=== PATIENT | female | born 1985 | race Caucasian/White ===

== ENCOUNTER 2017-01-30 12:22 | Emergency (ER) | payer OTHER ==
[~2017-01-30] VITALS: Ht 162.6 cm; Wt 100.2 kg
[~2017-01-30 12:22] MED LIST: LOVENOX40 MG SUB-Q
[2017-01-30] MEDS ORDERED: MECLIZINE HCL25 MG PO (14:38)
== END 2017-01-30 14:53 | disposition home or self-care (01) ==
LOC: ED 12:22
DX: H93.12 Tinnitus, left ear (principal); R11.10 Vomiting, unspecified; Z87.891 Personal history of nicotine dependence; Z88.0 Allergy status to penicillin; Z88.1 Allergy status to other antibiotic agents; Z90.49 Acquired absence of other specified parts of digestive tract
CPT/HCPCS: 81001; 84703; 99283

== ENCOUNTER 2020-04-22 07:55 | Day surgery (SDC) | payer OTHER ==
[~2020-04-22 07:55] MED LIST changes: +MECLIZINE HCL25 MG PO; +WELLBUTRIN SR150 MG PO
[2020-04-22] MEDS ORDERED: MULTI VITAMIN1 EACH PO (08:07)
--- NOTE | 2020-04-22 12:41 | NUR ---
04/22/20 1241 Braldey,Crystal 1211 PT ARRIVED TO PACU AWAKE AND TALKING TO RN, PT REPORTS PAIN 6/10 IN FOOT, PSYCHIATRY TEACHER TALKING TO PT ABOUT BLOCK. VSS.
--- NOTE | 2020-04-24 12:24 | PATH ---
[facility] [address] [place], [place] [address] Signed SPECIMEN(S): A LEFT FOOT SPECIMEN SOURCE: A. LEFT FOOT CLINICAL HISTORY: Soft tissue mass, left foot. Excision of cyst/ganglion of left foot. FINAL PATHOLOGIC DIAGNOSIS: Soft tissue mass, left foot, excision: - Ganglion cyst. NAL:cml:C2NR MICROSCOPIC EXAMINATION: Histologic sections of all submitted blocks are examined by light microscopy. These findings, together with the gross examination, support the pathologic diagnosis. GROSS DESCRIPTION: The specimen, labeled "JH," and designated on the requisition "soft tissue mass, left foot," is received in formalin and consists of a portion of pink-abraham to yellow-abraham soft tissue (2.8 x 2.5 x 1.4 cm). The specimen is serially sectioned to reveal a cystic structure (1.9 x 1.5 x 0.3 cm) containing a clear viscous fluid. The remaining cut surface shows yellow-abraham soft tissue. Steep Tender sections are submitted in cassette (A1). AC (under the direct supervision of a pathologist) The Gross Description was prepared using a voice recognition system. The report was reviewed for accuracy; however, sound-alike word errors, addition and/or deletions may occur. If there is any question about this report, please contact Client Services. PERFORMING LABORATORY: The technical component was performed by [facility], [address] [place] [id number] (Pipe Liner: Radha Cao MD; CLIA# [id number]).Professional interpretation was performed by [facility], [address] [address] (CLIA# [id number]). Diagnostician: Lissett Worley MD Pathologist PATIENT NAME: MORGAN LOPEZ PATHOLOGY DATE OF : 87 REPORT #: [id number] PHYSICIAN: TAMANNA PATHOLOGY PCP: GOL DURBIN PA-C REPORT IS CONFIDENTIAL AND NOT TO BE RELEASED WITHOUT AUTHORIZATION [address] [address] Signed Electronically Signed 04/24/2020 Copies: ~ PATIENT NAME: MORGAN LOPEZ PATHOLOGY DATE OF : 87 REPORT #: [id number] PHYSICIAN: TAMANNA PATHOLOGY PCP: GLO DURBIN PA-C REPORT IS CONFIDENTIAL AND NOT TO BE RELEASED WITHOUT AUTHORIZATION
--- NOTE | 2020-04-24 16:44 | OR ---
[facility] [address] [place], [place] [address] Signed DATE OF OPERATION: 04/22/2020 SURGEON: Jordan Hartmann DPM PREOPERATIVE DIAGNOSIS: Soft tissue mass or ganglion cyst, left foot. POSTOPERATIVE DIAGNOSIS: Soft tissue mass or ganglion cyst, left foot. PRINTER SLOTTER OPERATOR SURGEON: Jed Jaramillo DPM. ANESTHESIA: IV general with local block left foot. INCLUSION SPECIALIST: Maynor Estrella. SPECIMEN TO PATHOLOGY: Soft tissue mass from left foot. PROCEDURE: Excision of soft tissue mass, left foot. DESCRIPTION OF PROCEDURE: The patient was brought to the operating room and placed on the table in the supine position. Anesthesia Department administered IV sedation, after which a local block was given to the left foot using a total of 10 mL 1:1 mixture 0.5% ropivacaine plain and 2% lidocaine plain. The left leg and foot were then prepped and draped in the usual sterile manner and an Esmarch was used for hemostasis. Attention was initially directed to the lateral left foot where a linear longitudinal incision was made at the junction of dorsal and plantar skin centered over the 5th metatarsal base area. The soft tissue lesion was plantar left 5th metatarsal base and the incision was placed at this location to avoid a plantar incision. The incision was initially full-thickness through the dermis and a 4-5 cm in length, deepened through subcutaneous tissue using careful dissection and cautery as necessary for hemostasis. Once the dissection was through the level of subcutaneous tissue the lesion became evident within the wound site and at that point, dissection was used to progress around Electronically Signed By: JORDAN HARTMNAN DPM 04/24/20 1644 PATIENT NAME: MORGAN LOPEZ OPERATIVE REPORT DATE OF : 87 REPORT #: [id number] PHYSICIAN: JORDAN HARTMANN DPM PCP: GLO DURBIN PA-C REPORT IS CONFIDENTIAL AND NOT TO BE RELEASED WITHOUT AUTHORIZATION [facility] [address] [place], [place] [address] Signed the lesion on all sides dorsal and plantar, proximal and distal. The lesion had areas that appeared to be vascular as well as areas that appeared to be fluid-filled and a portion of this appeared to have nerve tissue. Therefore, the appearance is mixed and type of lesion is uncertain. The lesion total size was approximately 1.5 x 2.5 x 2.5 cm. Once the lesion was completely freed from the surrounding soft tissues this was sent for pathology and the remaining soft tissues examined for any remaining abnormal tissue and none was found. The surgical site was then irrigated with copious amounts of normal saline, then deep soft tissues closed using 4-0 Vicryl and skin closed using 4-0 nylon. Dressings then applied consisting of Adaptic, Betadine-soaked gauze, dry gauze, Flexicon, and Coban for compression. Prior to placement of the dressings, a postoperative injection was given using 8 mL of 9:1 mixture 0.5% ropivacaine plain and dexamethasone phosphate 4 mg/mL. INTRAOPERATIVE COMPLICATIONS: None. ESTIMATED BLOOD LOSS: Less than 5 mL. The patient tolerated the procedure and the anesthesia well and left the operating room with vital signs stable and vascular status intact to the left foot as evidenced by hyperemia with removal of the Esmarch. SELMA Paige/JOSEL /[id number] Copies: ~ Electronically Signed By: JORDAN HARTMANN DPM 04/24/20 1644 PATIENT NAME: MORGAN LOPEZ OPERATIVE REPORT DATE OF : 87 REPORT #: [id number] PHYSICIAN: JORDAN HARTMANN DPM PCP: GLO DURBIN PA-C REPORT IS CONFIDENTIAL AND NOT TO BE RELEASED WITHOUT AUTHORIZATION
== END 2020-04-22 13:11 | disposition home or self-care (01) ==
LOC: DS 07:55 → OPS 07:55 → DS 08:45 → OPS 08:45
PROVIDERS: ATTEND Podiatrist Foot Surgery
PROC: 0LBW0ZZ Excision of Left Foot Tendon, Open Approach (ICD-10-PCS; principal; 2020-04-22 08:45)
DX: M67.472 Ganglion, left ankle and foot (principal); Z88.0 Allergy status to penicillin
CPT/HCPCS: 01480; 64445; 76942; J1100; J1644; J2001; J2405; J2704; J2795; J3010; J7121

== ENCOUNTER 2024-07-03 08:28 | Emergency (ER) | payer OTHER ==
[~2024-07-03] VITALS: Ht 162.6 cm; Wt 91.6 kg
[~2024-07-03 08:28] MED LIST changes: +MULTI VITAMIN1 EACH PO
--- OUTSIDE RECORDS SUMMARY | 2024-07-03 08:35 | XMS ---
PreManage Notification: MORGAN LOPEZ Security Judicial Administrative Assistant Events No recent Security Events currently on file CRITERIA MET - Group Notification CARE PROVIDERS -, Sunday- Dentist: Conductor/[facility] PHONE: [phone] [place] has no Care Guidelines for this patient. E.Jessie VISIT COUNT (12 MO.) 1 SHAHID Hernandez TOTAL 1 NOTE: Visits indicate total known visits. ED/UCC VISIT TRACKING (12 MO.) 07/03/2024 08:29 SHAHID Preciado OR TYPE: Emergency COMPLAINT: - BACK PAIN INPATIENT VISIT TRACKING (12 MO.) No inpatient visits to display in this time frame [email or web address]
[2024-07-03] MEDS ORDERED: METHOCARBAMOL750 MG PO (08:45)
[2024-07-03] MEDS ORDERED: TRAMADOL HCL50 MG PO (08:45)
[2024-07-03] MEDS ORDERED: PROMETHAZINE HCL 50 MG/ML SDV IM ONE (09:15)
[2024-07-03] MEDS ORDERED: KETOROLAC TROMETHAMINE 30 MG/ML VIAL IM ONE (09:15)
[2024-07-03] MEDS ORDERED: predniSONE 20 MG TAB PO ONE (09:15)
[2024-07-03] MEDS ORDERED: PREDNISONE20 MG PO (09:48)
[2024-07-03 10:20] VITALS: BP 113/80
== END 2024-07-03 10:20 | disposition home or self-care (01) ==
LOC: ED 08:28
DX: M51.16 Intervertebral disc disorders with radiculopathy, lumbar region (principal); M41.50 Other secondary scoliosis, site unspecified; Z98.890 Other specified postprocedural states; Z87.891 Personal history of nicotine dependence; Z88.0 Allergy status to penicillin; Z79.899 Other long term (current) drug therapy
CPT/HCPCS: 96372; 99283; J1885; J2550; J7512